=== PATIENT | female | born 1980 | race Caucasian/White ===

== ENCOUNTER 2016-08-24 13:42 | Emergency (ER) | payer SELFPAY ==
[~2016-08-24] VITALS: Ht 167.6 cm; Wt 67.6 kg
[2016-08-24 13:56] VITALS: BP 114/75
--- NOTE | 2016-08-24 14:54 | Emergency Room Report ---
History of Present Illness General Chief Complaint: Upper Respiratory Illness Source: Patient Present Illness HPI 36-year-old female presents emergency department complaining of cough, fevers, body aches, chills, fatigue x3 weeks. Patient states her symptoms started after a flight to [place] from [place]. Patient states that her body has not been able to recuperate from combination of Jet-lag and excessive working. Patient denies neck pain or stiffness she states she's been taking okwi-[id number]-[id number] cough and cold medications with out relief. Patient denies productive cough. reports wheezing. pt states she is a current cigarette smoker. She denies rashes or abdominal pain. pt. reports generalized malaise, and 7/10 in severity body aches. Denies CP, Palpitations, LOC, AMS, dizziness, Changes in Vision, Sensation, paresthesias, or a sudden severe headache. Allergies: Coded Allergies: No Known Allergies (Unverified , 08/24/16) Patient History Past Medical History: see triage record Past Surgical History: none Pertinent Family History: none Social History: Reports: smoking Last Menstrual Period: 08/22/16 Now: No Reviewed Nursing Documentation: PMH: Agreed, PSxH: Agreed Nursing Documentation-PMH Past Medical History: No Stated History Review of Systems All Other Systems: negative except mentioned in HPI Physical Exam Vital Signs Date Time Temp Pulse Resp B/P Pulse Ox O2 Delivery O2 Flow Rate FiO2 08/24/16 13:46 98.1 64 18 114/75 99 Room Air Sp02 EP Interpretation: reviewed, normal General Appearance: no apparent distress, alert, GCS 15, non-toxic Head: normocephalic, atraumatic Eyes: bilateral eye PERRL, bilateral eye normal inspection ENT: hearing grossly normal, normal pharynx, no angioedema, normal voice, TMs + canals normal, uvula midline, moist mucus membranes Neck: full range of motion, supple/symm/no masses Respiratory: chest non-tender, lungs clear, normal breath sounds, no respiratory distress, speaking full sentences, wheezing - scant/diffuse wheezes bilaterally Cardiovascular #1: regular rate, rhythm, no edema Gastrointestinal: non tender, soft, no guarding, no rebound Rectal: deferred Musculoskeletal: back normal, gait/station normal, normal range of motion, non- tender Neurologic: alert, oriented x3, responsive, motor strength/tone normal, sensory intact, cerebellar normal, normal gait, speech normal Psychiatric: judgement/insight normal, memory normal, mood/affect normal Skin: normal color, no rash, warm/dry, well hydrated Lymphatic: normal inspection Medical Decision Making PA Attestation Dr. Kraus is my supervising Physician whom patient management has been discussed with. Diagnostic Impression: Primary Impression: Atypical pneumonia ER Course 36-year-old female presents emergency department complaining of cough, fevers, body aches, chills, fatigue x3 weeks. Patient states her symptoms started after a flight to [place] from [place]. Patient states that her body has not been able to recuperate from combination of Jet-lag and excessive working. Patient denies neck pain or stiffness she states she's been taking [id number] cough and cold medications with out relief. Patient denies productive cough. reports wheezing. pt states she is a current cigarette smoker. She denies rashes or abdominal pain. pt. reports generalized malaise, and 7/10 in severity body aches. Denies CP, Palpitations, LOC, AMS, dizziness, Changes in Vision, Sensation, paresthesias, or a sudden severe headache. Ddx considered but are not limited to URI, pneumonia, PE, strep pharyngitis, meningitis. Vital signs: Pt. is afebrile, the remaining VS are WNL H&PE are most consistent with URI will do chest x-ray , suspicious for atypical pneumonia due to prolonged symptoms x 3 weeks. ORDERS: -CXR: No consolidation, effusion, pneumothorax or acute cardiopulmonary findings per soft read in ED by Dr. Kraus ED INTERVENTIONS: None required at this time. DISCHARGE: At this time pt. is stable for d/c to home. Will provide printed patient care instructions, and any necessary prescriptions. Care plan and follow up instructions have been discussed with the patient prior to discharge. Chest X-Ray Diagnostic Results Chest X-Ray Ordered: Yes # of Views/Limited/Complete: 1 View EP Interpretation: Yes Interpretation: no consolidation, no effusion, no pneumothorax, no acute cardiopulmonary disease Indication: Shortness of Breath Impression: No acute disease Interpreting ER Provider: Dr. Kraus PA Scribe Text this interpretation has been scribed by SCOTT Last Vital Signs Date Time Temp Pulse Resp B/P Pulse Ox O2 Delivery O2 Flow Rate FiO2 08/24/16 13:56 64 18 Room Air 08/24/16 13:56 98.0 114/75 99 Disposition: HOME, SELF-CARE Condition: Stable Scripts Albuterol Sulfate* (ALBUTEROL SULFATE MDI*) 8.5 Gm Hfa.aer.ad 2 PUFF INH Q4H, #1 INH 0 Refills Prov: Afsaneh Galloway 08/24/16 Codeine/Promethazine Hcl* (PROMETHAZINE-CODEINE SYRUP*) 118 Ml Syrup 5 ML ORAL Q6H Y for For Cough, #118 ML 0 Refills Prov: Afsaneh Galloway 08/24/16 Azithromycin* (ZITHROMAX*) 250 Mg Tablet 250 MG ORAL DAILY, #6 TAB Prov: Afsaneh Galloway 08/24/16 Referrals: NOT CHOSEN IPA/,REFERRING (PCP) Patient Instructions: Upper Respiratory Infection, Adult Additional Instructions: Take medications as directed. Follow up with PCP in 3-5 days Return sooner to ED if new symptoms occur, or current symptoms become worse. - Please note that this Emergency Department Report was dictated using [employer] ed[employer] technology software, occasionally this can lead to erroneous entry secondary to interpretation by the dictation equipment. Afsaneh Galloway Aug 24, 2016 14:54
[2016-08-24] MEDS ORDERED: ZITHROMAX250 MG ORAL (14:56)
[2016-08-24] MEDS ORDERED: ALBUTEROL SULF8.5 GM INH (14:56)
[2016-08-24] MEDS ORDERED: PROMETHAZINE-C118 M1 ORAL (14:56)
[2016-08-24 15:17] VITALS: BP 114/75
--- NOTE | 2016-08-25 10:04 | Diagnostic Imaging Report ---
Indication: PAIN Technique: One view of the chest Comparison: none Findings: Lungs and pleural spaces are clear. Heart size is normal. Impression: No acute process
== END 2016-08-24 15:17 | disposition home or self-care (01) ==
LOC: EMR 14:49
DX: J18.9 Pneumonia, unspecified organism (principal); F17.210 Nicotine dependence, cigarettes, uncomplicated
CPT/HCPCS: 71010; 99284